=== PATIENT | female | born 2005 | race Asian ===

== ENCOUNTER 2023-08-05 19:59 | Emergency (ER) | payer OTHER ==
[~2023-08-05] VITALS: Ht 147.3 cm; Wt 55.4 kg
[2023-08-05] MEDS ORDERED: REGL10TA6 PO (20:07)
[2023-08-05] MEDS ORDERED: DIPH-435 PO (20:07)
[2023-08-06] MEDS ORDERED: METOCLOPRAMIDE INJ 10MG/2ML VIAL IV ONE (02:10)
[2023-08-06] MEDS ORDERED: NS 1,000 ML IV ONE (02:10)
[2023-08-06] MEDS ORDERED: ACETAMINOPHEN *IV* 1,000 MG in IV 1 EA IV ONE (02:10)
[2023-08-06] MEDS ORDERED: diphenhydrAMINE 50MG/ML VIAL IV ONE (02:10)
[2023-08-06 03:05] LABS: BASO # 0.1 10^3/uL (0.0-0.2); BASO % 0.5 % (0.0-1.0); EOS # 0.2 10^3/uL (0.0-0.5); EOS % 1.8 % (0.0-3.0); HEMOGLOBIN 9.6 g/dl (12.0-15.5); LYMPH # 2.2 10^3/uL (1.5-5.0); LYMPH % 20.5 % (24.0-44.0); MEAN CORPUSCULAR HEMOGLOBIN 24.8 pg (27.0-33.0); MEAN CORPUSCULAR HGB CONC 33.1 g/dl (32.0-36.5); MEAN CORPUSCULAR VOLUME 74.9 fl (80.0-96.0); MONO # 0.8 10^3/uL (0.0-0.8); MONO % 7.2 % (2.0-8.0); NEUTROPHILS # 7.6 10^3/uL (1.5-8.5); NEUTROPHILS % 69.6 % (36.0-66.0); PLATELET COUNT, AUTOMATED 284 10^3/uL (150-450); RED BLOOD COUNT 3.87 10^6/uL (4.00-5.40); WHITE BLOOD COUNT 10.9 10^3/uL (4.0-10.0)
[2023-08-06 03:45] LABS: LIPASE 47 U/L (12-53)
[2023-08-06] MEDS ORDERED: ONDANSETRON 4MG 2ML VIAL IV ONE (03:55)
[2023-08-06 04:02] LABS: ALBUMIN 2.9 G/DL (3.2-5.2); ALKALINE PHOSPHATASE 48 U/L (46-116); ALT/SGPT < 9 U/L (7.0-40); AST/SGOT 12 U/L (<34); BILIRUBIN,DIRECT 0.1 MG/DL (<0.4); BILIRUBIN,TOTAL 0.3 MG/DL (0.3-1.2); BLOOD UREA NITROGEN < 5 MG/DL (9-23); CALCIUM LEVEL 8.8 MG/DL (8.5-10.1); CARBON DIOXIDE LEVEL 23 MMOL/L (20-31); CHLORIDE LEVEL 107 MMOL/L (98-107); CREATININE FOR GFR 0.52 MG/DL (0.55-1.30); GLUCOSE, FASTING 77 MG/DL (60-100); POTASSIUM SERUM 3.3 MMOL/L (3.5-5.1); SODIUM LEVEL 139 MMOL/L (136-145); TOTAL PROTEIN 6.2 G/DL (5.7-8.2)
[2023-08-06] MEDS ORDERED: ONDA4TAB6 PO (05:22)
[2023-08-06 06:25] VITALS: BP 116/66; TEMP 98.7; O2SAT 99
== END 2023-08-06 06:27 | disposition home or self-care (01) ==
LOC: M ED 19:59
DX: G43.909 Migraine, unspecified, not intractable, without status migrainosus (principal)
CPT/HCPCS: 80048; 80076; 81001; 83605; 83690; 85025; 93041; 96365; 96366; 96375; 99284; J0131; J1200; J2765